=== PATIENT | female | born 1980 | race Caucasian/White ===

== ENCOUNTER 2017-02-08 14:11 | Day surgery (SDC) | payer BC ==
[~2017-02-08 14:11] MED LIST: Lidocaine 1%/Sod Bicarbonate in NS 8.4% 1 ML Syringe IV PRN; Sodium Chloride 0.9% 10 ML Syringe FLUSH PRN
[2017-02-08] MEDS ORDERED: Lactated Ringers 1,000 ML IV SCH (14:15)
--- NOTE | 2017-02-08 14:17 | PCM.PREANE ---
Preanesthetic Assessment - Anesthesia/Transfusion/Family Hx Anesthesia History: Prior Anesthesia Without Reaction Family History of Anesthesia Reaction: No Transfusion History: No Prior Transfusion(s) - Review of Systems General: No Symptoms Pulmonary: No Symptoms Cardiovascular: No Symptoms Gastrointestinal: No symptoms Neurological: No Symptoms Other: Reports: None - Physical Assessment NPO Status Date: 02/08/17 NPO Status Time: 09:00 Pulse: 90 O2 Sat by Pulse Oximetry: 100 Respiratory Rate: 16 Blood Pressure: 112/72 Temperature: 37.1 C Weight: 62.596 kg ASA Class: 1E Mental Status: Alert & Oriented x3 Airway Class: Mallampati = 2 Dentition: Reports: Normal Dentition Thyro-Mental Finger Breadths: 3 Mouth Opening Finger Breadths: 3 ROM/Head Extension: Full Lungs: Clear to auscultation, Normal respiratory effort Cardiovascular: Regular Rate, Regular Rhythm - Allergies Allergies/Adverse Reactions: Allergies Allergy/AdvReac Type Severity Reaction Status Date / Time Penicillins Allergy Rash Verified 03/04/14 08:17 - Blood Blood Available: No Product(s) Available: None - Anesthesia Plan Pre-Op Medication Ordered: None - Acknowledgements Anesthesia Type Planned: MAC Pt an Appropriate Candidate for the Planned Anesthesia: Yes Alternatives and Risks of Anesthesia Discussed w Pt/Guardian: Yes Pt/Guardian Understands and Agrees with Anesthesia Plan: Yes PreAnesthesia Questionnaire - HOME MEDS Home Medications: Home Meds Ferrous Sulfate [Iron Supplement] 325 mg PO DAILY 03/04/14 [History] Ondansetron [Zofran] 4 mg PO DAILY 03/04/14 [History] Vits #93/Iron Fum/FA [ Formula Tablet] 1 each PO DAILY [History] Acetaminophen/HYDROcodone [[place] 325-5 MG] 2 tab PO Q4H PRN #20 tablet 03/05/14 [Rx] Ibuprofen [Motrin] 600 mg PO Q4H PRN #30 tablet 03/05/14 [Rx] - CURRENT (IN HOUSE) MEDS Current Meds: Current Medications Lactated Ringer's (Ringers, Lactated) 1,000 mls @ 125 mls/hr IV ASDIRECTED LOPEZ Stop: 02/08/17 23:00 Lidocaine/Sodium Bicarbonate (Buffered Lidocaine 1% In Ns 8.4%) 0.25 ml IV ONETIME PRN PRN Reason: Prior to IV Start Sodium Chloride (Saline Flush) 10 ml FLUSH ASDIRECTED PRN PRN Reason: Keep Vein Open
[2017-02-08] MEDS ORDERED: Midazolam 1 MG/ML 2 ML SDV ONE (14:35)
[2017-02-08] MEDS ORDERED: Propofol 200 MG/20 ML SDV ONE (14:35)
[2017-02-08] MEDS ORDERED: fentaNYL 100 MCG/2 ML SDV ONE (14:35)
[2017-02-08] MEDS ORDERED: Lidocaine 1% 4 ML ONE (14:37)
[2017-02-08] MEDS ORDERED: Ondansetron 4 MG/2 ML SDV ONE (14:39)
[2017-02-08] MEDS ORDERED: Lactated Ringers 1,000 ML ONE (14:41)
[2017-02-08] MEDS ORDERED: Ketorolac 30 MG/ML SDV ONE (15:01)
--- NOTE | 2017-02-08 15:12 | PCM48HPAN ---
Post Anesthesia Note - EVALUATION WITHIN 48HRS OF ANESTHETIC Vital Signs in Normal Range: Yes Patient Participated in Evaluation: Yes Respiratory Function Stable: Yes Airway Patent: Yes Cardiovascular Function Stable: Yes Hydration Status Stable: Yes Pain Control Satisfactory: Yes Nausea and Vomiting Control Satisfactory: Yes Mental Status Recovered: Yes
[2017-02-08] MEDS ORDERED: Ondansetron 4 MG/2 ML SDV IVPUSH PRN (15:13)
[2017-02-08] MEDS ORDERED: Acetaminophen/Codeine 300-30 MG Tab PO PRN (15:13)
--- NOTE | 2017-02-08 15:19 | PCM.OPNOTE ---
- General Post-Op/Procedure Note Date of Surgery/Procedure: 02/08/17 Operative Procedure(s): Dilation and suction curettage Findings: Uterus is noted to sound to approximately 11 cm. Cervix is dilated 2+ centimeters. There was tissue protruding from the cervical os. Products removed from the individual cavity were consistent with trophoblastic tissue/placental tissue/products of conception. The bilateral adnexal areas were without masses. Pre Op Diagnosis: Incomplete spontaneous Post-Op Diagnosis: Same Anesthesia Technique: MAC Primary Surgeon: Taqueria Ramirez Anesthesia Provider: Jin Acosta Fluid Replacement, Intraop: 1,000 (Crystalloid) EBL in mLs: 25 Complications: None Condition: Good Free Text/Narrative:: Procedure note: Surgery duration: 4 minutes Complications: None Specimens: Endometrial curettings consistent with products of conception Procedure: The patient is taken to the operating room placed in supine position on the operating table. She had sequential compression stockings in place and had Ancef 2 g given for infection prophylaxis. She had no reaction to Ancef even though she had reported an allergic rash reaction to amoxicillin. Very light monitored anesthetic is then given. Patient is placed in a dorsal lithotomy position and prepped and draped in usual fashion. A weighted speculum was placed in the vagina and cervix is visualized. She has please grade 1-2's descensus. Cervix found be dilated at least 2 cm with tissue protruding to the external os. Tissue is consistent with products of conception. The uterus is about 9 weeks' size. No adnexal abnormalities are noted. A 16 mm suction curet was introduced and circumferential pattern the endometrial cavity was evacuated. A large sharp curette was then introduced and a gentle fashion curettage was undertaken and products of [place] essentially completely removed. At this point polyp forceps introduced and then the suction curet was reintroduced. No further tissue was removed. Bleeding was minimal. The vaginal vault was cleared of a small amount of blood present in it. Patient was returned to supine position and awakened from general endotracheal anesthesia. She left the operating room in good condition.
[2017-02-08 15:53] VITALS: BP 108/63
== END 2017-02-08 16:05 | disposition home or self-care (01) ==
LOC: JD.SDS 14:11
PROVIDERS: ATTEND Obstetrics & Gynecology
DX: O03.4 Incomplete spontaneous abortion without complication (principal); D64.9 Anemia, unspecified; Z88.0 Allergy status to penicillin; Z88.1 Allergy status to other antibiotic agents; Z79.899 Other long term (current) drug therapy; Z98.890 Other specified postprocedural states; Z72.0 Tobacco use
CPT/HCPCS: 36415; 59812; 85025; 86850; 86900; 86901; 88305; J1885; J2250; J2405; J3010; J7120; 01965; J2704

== ENCOUNTER 2021-07-25 04:12 | Day surgery (SDC) | payer MEDICAID ==
--- NOTE | 2021-07-25 04:37 | EDM.PDOC ---
<Tan Smith L - Last Filed: 07/25/21 07:16> ED HPI GENERAL MEDICAL PROBLEM - General Chief Complaint: Gastrointestinal Problem Stated Complaint: RT SIDE PAIN Time Seen by Provider: 07/25/21 04:36 Source of Information: Reports: Patient, RN Notes Reviewed - History of Present Illness INITIAL COMMENTS - FREE TEXT/NARRATIVE: 40 yr old female with onset of upper abd pain and cramping about 5 hrs ago. Had eaten out about 4 hrs prior to that. Has been vomiting, no diarrhea. No other family members recently ill. no prior abd surgeries. 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 2000 uncomplicated vaginal baby boy. 2. 2002 uncomplicated vaginal baby girl. 3. 2005 uncomplicated vaginal baby boy. 4. 2007 ectopic . 5. 2008 uncomplicated vaginal baby boy. 6. 2011 uncomplicated vaginal baby boy. 7. 2013 uncomplicated vaginal baby girl. 8. 2016 miscarriage and D&C. 9. 2020 girl Endocrine/Metabolic History: Reports: Diabetes, Gestational Hematologic History: Reports: Anemia - Infectious Disease History Infectious Disease History: Reports: Novel Coronavirus - Past Surgical History HEENT Surgical History: Reports: Oral Surgery Female Surgical History: Reports: D&C Social & Family History - Family History Family Medical History: No Pertinent Family History - Tobacco Use Tobacco Use Status *Q: Never Tobacco User Second Hand Smoke Exposure: No - Caffeine Use Caffeine Use: Reports: Coffee - Recreational Drug Use Recreational Drug Use: No - Living Situation & Occupation Living situation: Reports: (Husbands name is Alison) 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) ED ROS GENERAL - Review of Systems Review Of Systems: See Below HEENT: Reports: No Symptoms Respiratory: Reports: No Symptoms Cardiovascular: Reports: No Symptoms GI/Abdominal: Reports: Abdominal Pain, Nausea, Vomiting : Reports: No Symptoms Musculoskeletal: Denies: Back Pain Skin: Reports: No Symptoms Neurological: Reports: No Symptoms ED EXAM, GI/ABD - Physical Exam Exam: See Below General Appearance: Alert, Mild Distress Head: Atraumatic Neck: Supple Respiratory/Chest: No Respiratory Distress, Lungs Clear, Normal Breath Sounds Cardiovascular: Regular Rate, Rhythm GI/Abdominal Exam: Other (Tender upper mid abd, RUQ, R flank). No: Guarding, Rebound Back Exam: CVA Tenderness (R) Neurological: Alert, Oriented, No Motor/Sensory Deficits Skin Exam: Warm, Dry, Normal Color Course - Re-Assessments/Exams Free Text/Narrative Re-Assessment/Exam: 07/25/21 06:45. WBC 11,400, 76 segs, 13.5 L. CRP 0.2. Feels better after zofran, fluid IV. Still having mild discomfort RUQ and R flank, now has mild tenderness RUQ, no guarding or rebound, RLQ and remainder of abd is nontender at this time. Have given patient option of going home on clear liquids, repeat zofran as needed or getting an US of Abd at this time. [place] out [place], prefers to get US of abd at this time. Ua neg, covid also neg. 07/25/21 07:16 change of shift, will transfer care to Dr Ruiz, awaiting US and US results. Departure - Departure Disposition: DC/Tfer to [facility] Clinical Impression: Appendicitis Qualifiers: Appendicitis type: acute appendicitis Acute appendicitis type: unspecified acute appendicitis type Qualified Code(s): K35.80 - Unspecified acute appendicitis - Discharge Information Referrals: Kenna Cartagena, CABIN SERVICE AGENT [Primary Care Provider] - Forms: ED Department Discharge <Lj Ruiz - Last Filed: 07/25/21 12:53> Course - Vital Signs Last Recorded V/S: Last Vital Signs Temp 98.3 F 07/25/21 04:24 Pulse 96 07/25/21 04:24 Resp 18 07/25/21 04:24 BP 160/105 H 07/25/21 04:24 Pulse Ox 100 07/25/21 04:24 - Orders/Labs/Meds Orders: Active Orders 24 hr Category Date Time Status Communication Order [RC] ASDIRECTED Care 07/25/21 04:44 Active Peripheral IV Care [RC] . DIRECTED Care 07/25/21 04:44 Active Abdomen Ltd [US] Stat Exams 07/25/21 06:56 Taken Abdomen Pelvis w Cont [CT] Stat Exams 07/25/21 09:48 Taken Ketorolac [Toradol] Med 07/25/21 05:00 Active 30 mg IVPUSH ONETIME Lactated Ringers [Ringers, Lactated] 1,000 ml Med 07/25/21 10:00 Active IV ASDIRECTED Sodium Chloride 0.9% [Saline Flush] Med 07/25/21 04:44 Active 10 ml FLUSH ASDIRECTED PRN Sodium Chloride 0.9% [Saline Flush] Med 07/25/21 10:58 Active 10 ml FLUSH ONETIME PRN cefTRIAXone [Rocephin] 2 gm Med 07/25/21 12:49 Ordered Sodium Chloride 0.9% [Normal Saline AdvBag] 100 ml IV ONETIME metroNIDAZOLE/Normal Saline [Flagyl in NS 500 MG/100 ML Med 07/25/21 12:49 Ordered ] 500 mg Premix Bag 1 bag IV ONETIME Peripheral IV Insertion Adult [OM.PC] Stat Oth 07/25/21 04:44 Ordered Medication Orders Lactated Ringer's (Ringers, Lactated) 1,000 mls @ 100 mls/hr IV ASDIRECTED LOPEZ Last Admin: 07/25/21 10:43 Dose: 100 mls/hr Documented by: MALCOM Ketorolac Tromethamine (Ketorolac 30 Mg/Ml Sdv) 30 mg IVPUSH ONETIME LOPEZ Last Admin: 07/25/21 05:02 Dose: 30 mg Documented by: MITZY Sodium Chloride (Sodium Chloride 0.9% 10 Ml Syringe) 10 ml FLUSH ASDIRECTED PRN PRN Reason: Keep Vein Open Last Admin: 07/25/21 11:20 Dose: 10 ml Documented by: Admin: 07/25/21 05:02 Dose: 10 ml Documented by: MITZY Sodium Chloride (Sodium Chloride 0.9% 10 Ml Syringe) 10 ml FLUSH ONETIME PRN PRN Reason: Keep Vein Open Last Admin: 07/25/21 12:39 Dose: 10 ml Documented by: MALCOM Labs: Laboratory Tests 07/25/21 07/25/21 07/25/21 Range/Units 04:48 04:48 04:48 WBC 11.39 H (3.98-10.04) K/mm3 RBC 4.78 (3.98-5.22) M/mm3 Hgb 14.1 (11.2-15.7) gm/dl Hct 42.4 (34.1-44.9) % MCV 88.7 (79.4-94.8) fl MCH 29.5 (25.6-32.2) pg MCHC 33.3 (32.2-35.5) g/dl RDW Std Deviation 38.8 (36.4-46.3) fL Plt Count 243 (182-369) K/mm3 MPV 9.4 (9.4-12.3) fl Neut % (Auto) 76.1 H (34.0-71.1) % Lymph % (Auto) 13.5 L (19.3-51.7) % [place] % (Auto) 8.8 (4.7-12.5) % Eos % (Auto) 1.2 (0.7-5.8) Baso % (Auto) 0.2 (0.1-1.2) % Neut # (Auto) 8.67 H (1.56-6.13) K/mm3 Lymph # (Auto) 1.54 (1.18-3.74) K/mm3 [place] # (Auto) 1.00 H (0.24-0.36) K/mm3 Eos # (Auto) 0.14 (0.04-0.36) K/mm3 Baso # (Auto) 0.02 (0.01-0.08) K/mm3 Sodium 142 (136-145) mEq/L Potassium 3.6 (3.5-5.1) mEq/L Chloride 104 (98-107) mEq/L Carbon Dioxide 26 (21-32) mEq/L Anion Gap 15.6 H (5-15) BUN 13 (7-18) mg/dL Creatinine 0.8 (0.55-1.02) mg/dL Est Cr Clr Drug Dosing 84.11 mL/min Estimated GFR (MDRD) > 60 (>60) mL/min BUN/Creatinine Ratio 16.3 (14-18) Glucose 114 H (70-99) mg/dL Calcium 9.9 (8.5-10.1) mg/dL Total Bilirubin 0.4 (0.2-1.0) mg/dL AST 36 (15-37) U/L ALT 132 H (14-59) U/L Alkaline Phosphatase 69 (46-116) U/L C-Reactive Protein <0.2 (<1.0) mg/dL Total Protein 8.0 (6.4-8.2) g/dl Albumin 4.5 (3.4-5.0) g/dl Globulin 3.5 gm/dL Albumin/Globulin Ratio 1.3 (1-2) Urine Color (Yellow) Urine Appearance (Clear) Urine pH (5.0-8.0) Ur Specific [place] (1.005-1.030) Urine Protein (Negative) Urine Glucose (UA) (Negative) Urine Ketones (Negative) Urine Occult Blood (Negative) Urine Nitrite (Negative) Urine Bilirubin (Negative) Urine Urobilinogen (0.2-1.0) Ur Leukocyte Esterase (Negative) Urine RBC (0-5) /hpf Urine WBC (0-5) /hpf Ur Squamous Epith Cells (0-5) /hpf Urine Bacteria (FEW) /hpf Urine Mucus (FEW) /hpf Urine Yeast (NOT SEEN) Influenza Type A RNA Negative (NEGATIVE) Influenza Type B RNA Negative (NEGATIVE) SARS-CoV-2 RNA (FLORES) Negative (NEGATIVE) 07/25/21 Range/Units 04:57 WBC (3.98-10.04) K/mm3 RBC (3.98-5.22) M/mm3 Hgb (11.2-15.7) gm/dl Hct (34.1-44.9) % MCV (79.4-94.8) fl MCH (25.6-32.2) pg MCHC (32.2-35.5) g/dl RDW Std Deviation (36.4-46.3) fL Plt Count (182-369) K/mm3 MPV (9.4-12.3) fl Neut % (Auto) (34.0-71.1) % Lymph % (Auto) (19.3-51.7) % [place] % (Auto) (4.7-12.5) % Eos % (Auto) (0.7-5.8) Baso % (Auto) (0.1-1.2) % Neut # (Auto) (1.56-6.13) K/mm3 Lymph # (Auto) (1.18-3.74) K/mm3 [place] # (Auto) (0.24-0.36) K/mm3 Eos # (Auto) (0.04-0.36) K/mm3 Baso # (Auto) (0.01-0.08) K/mm3 Sodium (136-145) mEq/L Potassium (3.5-5.1) mEq/L Chloride (98-107) mEq/L Carbon Dioxide (21-32) mEq/L Anion Gap (5-15) BUN (7-18) mg/dL Creatinine (0.55-1.02) mg/dL Est Cr Clr Drug Dosing mL/min Estimated GFR (MDRD) (>60) mL/min BUN/Creatinine Ratio (14-18) Glucose (70-99) mg/dL Calcium (8.5-10.1) mg/dL Total Bilirubin (0.2-1.0) mg/dL AST (15-37) U/L ALT (14-59) U/L Alkaline Phosphatase (46-116) U/L C-Reactive Protein (<1.0) mg/dL Total Protein (6.4-8.2) g/dl Albumin (3.4-5.0) g/dl Globulin gm/dL Albumin/Globulin Ratio (1-2) Urine Color Yellow (Yellow) Urine Appearance Slt cloudy H (Clear) Urine pH 5.5 (5.0-8.0) Ur Specific [place] > or = 1.030 (1.005-1.030) Urine Protein Negative (Negative) Urine Glucose (UA) Negative (Negative) Urine Ketones Negative (Negative) Urine Occult Blood Trace-intact H (Negative) Urine Nitrite Negative (Negative) Urine Bilirubin Negative (Negative) Urine Urobilinogen 0.2 (0.2-1.0) Ur Leukocyte Esterase Negative (Negative) Urine RBC 0-5 (0-5) /hpf Urine WBC 0-5 (0-5) /hpf Ur Squamous Epith Cells 0-5 (0-5) /hpf Urine Bacteria Few (FEW) /hpf Urine Mucus Many H (FEW) /hpf Urine Yeast Rare H (NOT SEEN) Influenza Type A RNA (NEGATIVE) Influenza Type B RNA (NEGATIVE) SARS-CoV-2 RNA (FLORES) (NEGATIVE) Meds: Medications Generic Name Dose Route Start Last Admin Trade Name Freq PRN Reason Stop Dose Admin Lactated Ringer's 1,000 mls @ 100 mls/hr 07/25/21 10:00 07/25/21 10:43 Ringers, Lactated IV 100 mls/hr ASDIRECTED LOPEZ Administration Ketorolac Tromethamine 30 mg 07/25/21 05:00 07/25/21 05:02 Ketorolac 30 Mg/Ml Sdv IVPUSH 30 mg ONETIME LOPEZ Administration Sodium Chloride 10 ml 07/25/21 04:44 07/25/21 11:20 Sodium Chloride 0.9% 10 Ml Syringe FLUSH 10 ml ASDIRECTED PRN Administration Keep Vein Open Sodium Chloride 10 ml 07/25/21 10:58 07/25/21 12:39 Sodium Chloride 0.9% 10 Ml Syringe FLUSH 10 ml ONETIME PRN Administration Keep Vein Open Discontinued Medications Generic Name Dose Route Start Last Admin Trade Name Freq PRN Reason Stop Dose Admin Diatrizoate Meglum/Diatrizoate Sod 40 ml 07/25/21 10:58 07/25/21 11:20 Diatrizoate Meglumine/Diatrizoate Sodium 37% 120 Ml Bottle PO 07/25/21 10:59 60 ml ONETIME ONE Administration Hydromorphone HCl 0.5 mg 07/25/21 11:12 07/25/21 11:30 Hydromorphone 0.5 Mg/0.5 Ml Syringe IVPUSH 07/25/21 11:13 0.5 mg ONETIME ONE Administration Sodium Chloride 1,000 mls @ 999 mls/hr 07/25/21 04:45 07/25/21 05:02 Normal Saline IV 07/25/21 05:44 999 mls/hr Q1H LOPEZ Administration Iopamidol 100 ml 07/25/21 10:58 07/25/21 11:20 Iopamidol 612 Mg/Ml 100 Ml Bottle IVPUSH 07/25/21 10:59 100 ml ONETIME ONE Administration Ondansetron HCl 4 mg 07/25/21 04:44 07/25/21 05:02 Ondansetron 4 Mg/2 Ml Sdv IVPUSH 07/25/21 04:45 4 mg ONETIME ONE Administration Ondansetron HCl 4 mg 07/25/21 10:33 07/25/21 10:43 Ondansetron 4 Mg/2 Ml Sdv IVPUSH 07/25/21 10:34 4 mg ONETIME ONE Administration - Re-Assessments/Exams Free Text/Narrative Re-Assessment/Exam: 07/25/21 11:10 Her US shows mild dilatation of the common bile duct at 7.6mm. Correlate as to possible biliary obstruction and consider dedicated evaluation, such as MRI/MRCP. Large, fatty liver. Nonmobile echogenic foci in the gallbladder measuring up to 5mm, could represent polyps or sludge balls. Appendix not id entified, with appendicitis therefore neither confirmed nor excluded. She has pain now more in the RLQ. I have ordered a CT of her abdomen and pelvis with IV and oral contrast. She has nausea and more pain so I ordered dilaudid 0.5mg IV and zofran 4mg IV. 07/25/21 12:[address] shows acute appendicitis. Currently there is no evidence for free perforation or abscess. I called Dr Phelps and she will come see the patient and take her to the OR to remove the appendix. I have ordered rocephin 2 grams IV and flagyl 500mg IV. Departure - Departure Time of Disposition: 12:55 Condition: Fair Sepsis Event Note (ED) - Focused Exam Vital Signs: Vital Signs Temp Pulse Resp BP Pulse Ox 07/25/21 04:24 98.3 F 96 18 160/105 H 100 - My Orders Last 24 Hours: My Active Orders 07/25/21 09:48 Abdomen Pelvis w Cont [CT] Stat 07/25/21 10:00 Lactated Ringers [Ringers, Lactated] 1,000 ml IV ASDIRECTED 07/25/21 12:49 cefTRIAXone [Rocephin] 2 gm Sodium Chloride 0.9% [Normal Saline AdvBag] 100 ml IV ONETIME metroNIDAZOLE/Normal Saline [Flagyl in NS 500 MG/100 ML] 500 mg Premix Bag 1 bag IV ONETIME - Assessment/Plan Last 24 Hours: My Active Orders 07/25/21 09:48 Abdomen Pelvis w Cont [CT] Stat 07/25/21 10:00 Lactated Ringers [Ringers, Lactated] 1,000 ml IV ASDIRECTED 07/25/21 12:49 cefTRIAXone [Rocephin] 2 gm Sodium Chloride 0.9% [Normal Saline AdvBag] 100 ml IV ONETIME metroNIDAZOLE/Normal Saline [Flagyl in NS 500 MG/100 ML] 500 mg Premix Bag 1 bag IV ONETIME
[2021-07-25] MEDS ORDERED: Ondansetron 4 MG/2 ML SDV IVPUSH ONE ×3 (04:44→16:35)
[2021-07-25] MEDS ORDERED: Sodium Chloride 0.9% 1,000 ML IV SCH (04:45)
[2021-07-25] MEDS ORDERED: Ketorolac 30 MG/ML SDV IVPUSH SCH (05:00)
[2021-07-25] MEDS: Sodium Chloride 0.9% 10 ML Syringe FLUSH PRN ×2 (05:02→11:20)
[2021-07-25 05:49] LABS: CORONAVIRUS COVID-19 NAA NEGATIVE (NEGATIVE)
[2021-07-25] MEDS ORDERED: Lactated Ringers 1,000 ML IV SCH (10:00)
[2021-07-25] MEDS ORDERED: Iopamidol 612 MG/ML 100 ML Bottle IVPUSH ONE (10:58)
[2021-07-25] MEDS ORDERED: Sodium Chloride 0.9% 10 ML Syringe FLUSH PRN (10:58)
[2021-07-25] MEDS ORDERED: Diatrizoate Meglumine/Diatrizoate Sodium 37% 120 ML Bottle PO ONE (10:58)
[2021-07-25] MEDS ORDERED: HYDROmorphone 0.5 MG/0.5 ML Syringe IVPUSH ONE (11:12)
[2021-07-25] MEDS ORDERED: cefTRIAXone 2 GM in Sodium Chloride 0.9% 100 ML IV ONE (12:49)
[2021-07-25] MEDS ORDERED: metroNIDAZOLE/Normal Saline 500 MG in Premix Bag 1 BAG IV ONE (12:49)
[2021-07-25] MEDS ORDERED: Lidocaine 1% with EPINEPHrine 1:100,000 10 ML MDV ONE (13:27)
[2021-07-25] MEDS ORDERED: Bupivacaine 0.5% 30 ML SDV ONE (13:27)
--- NOTE | 2021-07-25 13:41 | PCM.PREANE ---
Preanesthetic Assessment - Procedure Proposed Procedure: Laparoscopic appendectomy - Anesthesia/Transfusion/Family Hx Anesthesia History: Prior Anesthesia Without Reaction Transfusion History: No Prior Transfusion(s) Intubation History: Unknown - Review of Systems General: No Symptoms Pulmonary: No Symptoms Cardiovascular: No Symptoms Gastrointestinal: No Symptoms Neurological: No Symptoms Other: Reports: None - Physical Assessment NPO Status Date: 07/25/21 NPO Status Time: 12:00 Vital Signs: Last Vital Signs Temp 98.3 F 07/25/21 04:24 Pulse 96 07/25/21 04:24 Resp 18 07/25/21 04:24 BP 160/105 H 07/25/21 04:24 Pulse Ox 100 07/25/21 04:24 Height: 1.65 m Weight: 70.307 kg ASA Class: 1E Mental Status: Alert & Oriented x3 Airway Class: Mallampati = 2 Dentition: Reports: Normal Dentition, [place](s) Thyro-Mental Finger Breadths: 3 Mouth Opening Finger Breadths: 3 ROM/Head Extension: Full Lungs: Clear to Auscultation, Normal Respiratory Effort Cardiovascular: Regular Rate, Regular Rhythm - Lab Values: Laboratory Last Values WBC 11.39 K/mm3 (3.98-10.04) H 07/25/21 04:48 RBC 4.78 M/mm3 (3.98-5.22) 07/25/21 04:48 Hgb 14.1 gm/dl (11.2-15.7) 07/25/21 04:48 Hct 42.4 % (34.1-44.9) 07/25/21 04:48 MCV 88.7 fl (79.4-94.8) 07/25/21 04:48 MCH 29.5 pg (25.6-32.2) 07/25/21 04:48 MCHC 33.3 g/dl (32.2-35.5) 07/25/21 04:48 RDW Std Deviation 38.8 fL (36.4-46.3) 07/25/21 04:48 Plt Count 243 K/mm3 (182-369) 07/25/21 04:48 MPV 9.4 fl (9.4-12.3) 07/25/21 04:48 Neut % (Auto) 76.1 % (34.0-71.1) H 07/25/21 04:48 Lymph % (Auto) 13.5 % (19.3-51.7) L 07/25/21 04:48 [place] % (Auto) 8.8 % (4.7-12.5) 07/25/21 04:48 Eos % (Auto) 1.2 (0.7-5.8) 07/25/21 04:48 Baso % (Auto) 0.2 % (0.1-1.2) 07/25/21 04:48 Neut # (Auto) 8.67 K/mm3 (1.56-6.13) H 07/25/21 04:48 Lymph # (Auto) 1.54 K/mm3 (1.18-3.74) 07/25/21 04:48 [place] # (Auto) 1.00 K/mm3 (0.24-0.36) H 07/25/21 04:48 Eos # (Auto) 0.14 K/mm3 (0.04-0.36) 07/25/21 04:48 Baso # (Auto) 0.02 K/mm3 (0.01-0.08) 07/25/21 04:48 Sodium 142 mEq/L (136-145) 07/25/21 04:48 Potassium 3.6 mEq/L (3.5-5.1) 07/25/21 04:48 Chloride 104 mEq/L (98-107) 07/25/21 04:48 Carbon Dioxide 26 mEq/L (21-32) 07/25/21 04:48 Anion Gap 15.6 (5-15) H 07/25/21 04:48 BUN 13 mg/dL (7-18) 07/25/21 04:48 Creatinine 0.8 mg/dL (0.55-1.02) 07/25/21 04:48 Est Cr Clr Drug Dosing 84.11 mL/min 07/25/21 04:48 Estimated GFR (MDRD) > 60 mL/min (>60) 07/25/21 04:48 BUN/Creatinine Ratio 16.3 (14-18) 07/25/21 04:48 Glucose 114 mg/dL (70-99) H 07/25/21 04:48 Calcium 9.9 mg/dL (8.5-10.1) 07/25/21 04:48 Total Bilirubin 0.4 mg/dL (0.2-1.0) 07/25/21 04:48 AST 36 U/L (15-37) 07/25/21 04:48 ALT 132 U/L (14-59) H 07/25/21 04:48 Alkaline Phosphatase 69 U/L (46-116) 07/25/21 04:48 C-Reactive Protein <0.2 mg/dL (<1.0) 07/25/21 04:48 Total Protein 8.0 g/dl (6.4-8.2) 07/25/21 04:48 Albumin 4.5 g/dl (3.4-5.0) 07/25/21 04:48 Globulin 3.5 gm/dL 07/25/21 04:48 Albumin/Globulin Ratio 1.3 (1-2) 07/25/21 04:48 Urine Color Yellow (Yellow) 07/25/21 04:57 Urine Appearance Slt cloudy (Clear) H 07/25/21 04:57 Urine pH 5.5 (5.0-8.0) 07/25/21 04:57 Ur Specific [place] > or = 1.030 (1.005-1.030) 07/25/21 04:57 Urine Protein Negative (Negative) 07/25/21 04:57 Urine Glucose (UA) Negative (Negative) 07/25/21 04:57 Urine Ketones Negative (Negative) 07/25/21 04:57 Urine Occult Blood Trace-intact (Negative) H 07/25/21 04:57 Urine Nitrite Negative (Negative) 07/25/21 04:57 Urine Bilirubin Negative (Negative) 07/25/21 04:57 Urine Urobilinogen 0.2 (0.2-1.0) 07/25/21 04:57 Ur Leukocyte Esterase Negative (Negative) 07/25/21 04:57 Urine RBC 0-5 /hpf (0-5) 07/25/21 04:57 Urine WBC 0-5 /hpf (0-5) 07/25/21 04:57 Ur Squamous Epith Cells 0-5 /hpf (0-5) 07/25/21 04:57 Urine Bacteria Few /hpf (FEW) 07/25/21 04:57 Urine Mucus Many /hpf (FEW) H 07/25/21 04:57 Urine Yeast Rare (NOT SEEN) H 07/25/21 04:57 Influenza Type A RNA Negative (NEGATIVE) 07/25/21 04:48 Influenza Type B RNA Negative (NEGATIVE) 07/25/21 04:48 SARS-CoV-2 RNA (FLORES) Negative (NEGATIVE) 07/25/21 04:48 - Allergies Allergies/Adverse Reactions: Allergies Allergy/AdvReac Type Severity Reaction Status Date / Time amoxicillin Allergy Rash Verified 07/25/21 04:26 - Acknowledgements Anesthesia Type Planned: General Anesthesia Pt an Appropriate Candidate for the Planned Anesthesia: Yes Alternatives and Risks of Anesthesia Discussed w Pt/Guardian: Yes Pt/Guardian Understands and Agrees with Anesthesia Plan: Yes PreAnesthesia Questionnaire Gastrointestinal History: Reports: GERD 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 2000 uncomplicated vaginal baby boy. 2. 2002 uncomplicated vaginal baby girl. 3. 2005 uncomplicated vaginal baby boy. 4. 2007 ectopic . 5. 2008 uncomplicated vaginal baby boy. 6. 2011 uncomplicated vaginal baby boy. 7. 2013 uncomplicated vaginal baby girl. 8. 2016 miscarriage and D&C. 9. 2020 girl Endocrine/Metabolic History: Reports: Diabetes, Gestational Hematologic History: Reports: Anemia - Infectious Disease History Infectious Disease History: Reports: Novel Coronavirus - Past Surgical History HEENT Surgical History: Reports: Oral Surgery Female Surgical History: Reports: D&C - SUBSTANCE USE Tobacco Use Status *Q: Never Tobacco User Second Hand Smoke Exposure: No Recreational Drug Use History: No - HOME MEDS Home Medications: Home Meds No122/Iron/Folic Acid [ Multi Tablet] 1 each PO DAILY 02/21/19 [History] Ascorbic Acid [Vitamin C] 1,000 mg PO DAILY 01/14/21 [History] - CURRENT (IN HOUSE) MEDS Current Meds: Current Medications Lactated Ringer's (Ringers, Lactated) 1,000 mls @ 100 mls/hr IV ASDIRECTED [facility] Last Admin: 07/25/21 10:43 Dose: 100 mls/hr Documented by: Metronidazole 500 mg/ Premix 100 mls @ 100 mls/hr IV ONETIME ONE Stop: 07/25/21 13:48 Last Admin: 07/25/21 13:15 Dose: 100 mls/hr Documented by: Ketorolac Tromethamine (Ketorolac 30 Mg/Ml Sdv) 30 mg IVPUSH ONETIME [facility]OPE[place] Last Admin: 07/25/21 05:02 Dose: 30 mg Documented by: Sodium Chloride (Sodium Chloride 0.9% 10 Ml Syringe) 10 ml FLUSH ASDIRECTED PRN PRN Reason: Keep Vein Open Last Admin: 07/25/21 11:20 Dose: 10 ml Documented by: Sodium Chloride (Sodium Chloride 0.9% 10 Ml Syringe) 10 ml FLUSH ONETIME PRN PRN Reason: Keep Vein Open Last Admin: 07/25/21 12:39 Dose: 10 ml Documented by: Discontinued Medications Bupivacaine HCl (Bupivacaine 0.5% 30 Ml Sdv) Confirm Administered Dose 30 ml .ROUTE .STK-MED ONE Stop: 07/25/21 13:28 Diatrizoate Meglum/Diatrizoate Sod (Diatrizoate Meglumine/Diatrizoate Sodium 37% 120 Ml Bottle) 40 ml PO ONETIME ONE Stop: 07/25/21 10:59 Last Admin: 07/25/21 11:20 Dose: 60 ml Documented by: Hydromorphone HCl (Hydromorphone 0.5 Mg/0.5 Ml Syringe) 0.5 mg IVPUSH ONETIME ONE Stop: 07/25/21 11:13 Last Admin: 07/25/21 11:30 Dose: 0.5 mg Documented by: Sodium Chloride (Normal Saline) 1,000 mls @ 999 mls/hr IV Q1H [facility] Stop: 07/25/21 05:44 Last Admin: 07/25/21 05:02 Dose: 999 mls/hr Documented by: Ceftriaxone Sodium 2 gm/ (Sodium Chloride) 100 mls @ 200 mls/hr IV ONETIME ONE Stop: 07/25/21 13:18 Last Admin: 07/25/21 13:15 Dose: 200 mls/hr Documented by: Iopamidol (Iopamidol 612 Mg/Ml 100 Ml Bottle) 100 ml IVPUSH ONETIME ONE Stop: 07/25/21 10:59 Last Admin: 07/25/21 11:20 Dose: 100 ml Documented by: Lidocaine/Epinephrine (Lidocaine 1% With Epinephrine 1:100,000 10 Ml Mdv) Confirm Administered Dose 30 ml .ROUTE .STK-MED ONE Stop: 07/25/21 13:28 Ondansetron HCl (Ondansetron 4 Mg/2 Ml Sdv) 4 mg IVPUSH ONETIME ONE Stop: 07/25/21 04:45 Last Admin: 07/25/21 05:02 Dose: 4 mg Documented by: Ondansetron HCl (Ondansetron 4 Mg/2 Ml Sdv) 4 mg IVPUSH ONETIME ONE Stop: 07/25/21 10:34 Last Admin: 07/25/21 10:43 Dose: 4 mg Documented by:
[2021-07-25] MEDS ORDERED: Lidocaine 1% 4 ML ONE (13:47)
[2021-07-25] MEDS ORDERED: Ketorolac 30 MG/ML SDV ONE (13:47)
[2021-07-25] MEDS ORDERED: fentaNYL 250 MCG/5 ML SDV ONE (13:47)
[2021-07-25] MEDS ORDERED: Succinylcholine/Sod PF 100 MG/5 ML SYRINGE IV ONE (13:47)
[2021-07-25] MEDS ORDERED: Ondansetron 4 MG/2 ML SDV ONE ×2 (13:47→16:37)
[2021-07-25] MEDS ORDERED: Rocuronium 50 MG/5 ML Vial ONE (13:47)
[2021-07-25] MEDS ORDERED: Propofol 200 MG/20 ML SDV ONE (13:47)
[2021-07-25] MEDS ORDERED: Dexamethasone 4 MG/ML 5 ML MDV ONE (13:47)
[2021-07-25] MEDS ORDERED: HYDROmorphone 0.5 MG/0.5 ML Syringe ONE (13:48)
[2021-07-25] MEDS ORDERED: Midazolam 1 MG/ML 2 ML SDV ONE (14:06)
[2021-07-25] MEDS ORDERED: HYDROmorphone 0.5 MG/0.5 ML Syringe IVPUSH PRN (14:46)
[2021-07-25] MEDS ORDERED: fentaNYL 100 MCG/2 ML SDV IVPUSH PRN (14:46)
--- NOTE | 2021-07-25 15:16 | PCM.PRNOTE ---
- Free Text/Narrative Note: Operative Report Date of surgery: July 25, 2021 Preoperative diagnosis: acute appendicitis. Postoperative diagnosis: same Procedure performed: laparoscopic appendectomy Surgeon: Dr. Lashaun Aly Anesthesia: General Pelt Shearer: Robert Chew CRNA Estimated blood loss 5 mL IV fluids: 1200 mL Urine output: 0 Drains and lines: None Findings: Acute appendicitis Pathology: Appendix Indications for procedure: The patient is a 40-year-old female who presented to the emergency department with findings of abdominal pain. She had investigation that indicated acute appendicitis as visualized on CT scan. We discussed a laparoscopic appendectomy for treatment. We discussed risks of bleeding and conversion to open. We also discussed the risk of possible intra-abdominal injury. Her written consent was obtained. Description of procedure: The patient was taken back to the operating room and placed in supine position on the operating table. SCD boots were in place and functional prior to the start of the procedure. Preoperative antibiotics were administered in the Emergency department for acute appendicitis. The patient had successful induction of general anesthesia and was intubated without difficulty. Pt was then prepped and draped in standard surgical fashion and a timeout was performed. We began by making a 15 mm incision in the infraumbilical skin and deepened down to level of the fascia. A small umbilical hernia was present, and the umbilical port site was placed in this area after enlarging the defect to accommodate the Ruano port. We entered the peritoneum and then placed stay sutures of 0 Vicryl on the fascial edges. A 12 mm Ruano port was then placed into the umbilicus and the balloon was inflated. The abdomen was insufflated to 15 mmHg a 5 mm camera was inserted. There was no evidence of any injury created from entry into the abdomen. A TA P block was performed using mixed 1% lidocaine with epinephrine and 0.5% bupivacaine. We then proceeded to place a 5 mm port under direct visualization in the suprapubic midline and an additional 5mm port in the left lower quadrant. The patient was then positioned in Trendelenburg with right side elevated and we proceeded to mobilize the appendix. The appendix firm with dark discoloration at the base consistent with developing gangrene of the appendix. There was a small amount of fluid in the abdomen, which was removed with a RayTec. The appendix was then grasped and with blunt dissection was brought into the surgical field. The mesoappendix was dissected from the appendix with the LigaSure. The appendix was then taken with a tissue staple load. The specimen was in place in the Endo Catch bag. We then inspected and removed any blood in the area. There was no active bleeding at the end of this case. The abdomen was then desufflated and the umbilical fascia closed with 0 Vicryl sutures and the stay sutures were tied, effectively closing the umbilical port site. The skin was then reapproximated at all port sites using a 4-0 Monocryl subcutaneous stitch and covered with Dermabond surgical glue. The patient tolerated the procedure. She was extubated and transported to the PACU in stable condition. All sponge and needle counts were correct. Lashaun Aly MD General surgery
--- NOTE | 2021-07-25 15:16 | PCM.HP.2 ---
H&P History of Present Illness - General Date of Service: 07/25/21 Admit Problem/Dx: Admission Diagnosis/Problem Admission Diagnosis/Problem Abdominal pain acute appendicitis Source of Information: Patient, Provider History Limitations: Reports: No Limitations - History of Present Illness Initial Comments - Free Text/Narative: The patient is a 40-year-old female presented to the emergency department complaining of abdominal pain. She reports the pain started last night. She developed nausea and vomiting after the pain. She states she had a similar episode within the last year, but it resolved after she went to bed. This time the pain persisted. She normally has diarrhea and she noted that she had more normal consistency stools in the past 2 days. She had chills. She denies any fever. She denies any hematochezia or melena. In the ED she had evaluation that included a CT scan of the abdomen and pelvis. 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 2000 uncomplicated vaginal baby boy. 2. 2002 uncomplicated vaginal baby girl. 3. 2005 uncomplicated vaginal baby boy. 4. 2007 ectopic . 5. 2008 uncomplicated vaginal baby boy. 6. 2011 uncomplicated vaginal baby boy. 7. 2013 uncomplicated vaginal baby girl. 8. 2016 miscarriage and D&C. 2020 girl Endocrine/Metabolic History: Reports: Diabetes, Gestational Hematologic History: Reports: Anemia - Infectious Disease History Infectious Disease History: Reports: Novel Coronavirus - Past Surgical History HEENT Surgical History: Reports: Oral Surgery Female Surgical History: Reports: D&C Social & Family History - Family History Cardiac: Reports: Hypertension Oncologic: Reports: Other (See Below) Other Oncologic Family History: stomach cancer in 2 second-degree relatives - Tobacco Use Tobacco Use Status *Q: Never Tobacco User Second Hand Smoke Exposure: No - Caffeine Use Caffeine Use: Reports: Coffee - Recreational Drug Use Recreational Drug Use: No - Living Situation & Occupation Living situation: Reports: (Husbands name is Alison) 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 Denies: Melena Genitourinary: Reports: No Symptoms Musculoskeletal: Reports: No Symptoms Skin: Reports: No Symptoms Neurological: Reports: No Symptoms Hematologic/Lymphatic: Reports: No Symptoms Exam - Exam Exam: See Below - Vital Signs Vital Signs: Last Vital Signs Temp 36.8 C 07/25/21 04:24 Pulse 96 07/25/21 04:24 Resp 18 07/25/21 04:24 BP 160/105 H 07/25/21 04:24 Pulse Ox 100 07/25/21 04:24 Weight: 70.307 kg - Exam Quality Assessment: No: Supplemental Oxygen General: Alert, Oriented HEENT: Conjunctiva Clear, EOMI Neck: Supple Lungs: Clear to Auscultation, Normal Respiratory Effort Cardiovascular: Regular Rate, Regular Rhythm GI/Abdominal Exam: Soft, Rebound (in the RLQ), Tender Extremities: Normal Inspection, No Pedal Edema Peripheral Pulses: 2+: Dorsalis Pedis (L), Dorsalis Pedis (R) Skin: Warm, Dry, Intact Neurological: Cranial Nerves Intact Neuro Extensive - Mental Status: Normal Mood/Affect - Patient Data Lab Results Last 24 hrs: Laboratory Results - last 24 hr 07/25/21 07/25/21 07/25/21 Range/Units 04:48 04:48 04:48 WBC 11.39 H (3.98-10.04) K/mm3 RBC 4.78 (3.98-5.22) M/mm3 Hgb 14.1 (11.2-15.7) gm/dl Hct 42.4 (34.1-44.9) % MCV 88.7 (79.4-94.8) fl MCH 29.5 (25.6-32.2) pg MCHC 33.3 (32.2-35.5) g/dl RDW Std Deviation 38.8 (36.4-46.3) fL Plt Count 243 (182-369) K/mm3 MPV 9.4 (9.4-12.3) fl Neut % (Auto) 76.1 H (34.0-71.1) % Lymph % (Auto) 13.5 L (19.3-51.7) % [place] % (Auto) 8.8 (4.7-12.5) % Eos % (Auto) 1.2 (0.7-5.8) Baso % (Auto) 0.2 (0.1-1.2) % Neut # (Auto) 8.67 H (1.56-6.13) K/mm3 Lymph # (Auto) 1.54 (1.18-3.74) K/mm3 [place] # (Auto) 1.00 H (0.24-0.36) K/mm3 Eos # (Auto) 0.14 (0.04-0.36) K/mm3 Baso # (Auto) 0.02 (0.01-0.08) K/mm3 Sodium 142 (136-145) mEq/L Potassium 3.6 (3.5-5.1) mEq/L Chloride 104 (98-107) mEq/L Carbon Dioxide 26 (21-32) mEq/L Anion Gap 15.6 H (5-15) BUN 13 (7-18) mg/dL Creatinine 0.8 (0.55-1.02) mg/dL Est Cr Clr Drug Dosing 84.11 mL/min Estimated GFR (MDRD) > 60 (>60) mL/min BUN/Creatinine Ratio 16.3 (14-18) Glucose 114 H (70-99) mg/dL Calcium 9.9 (8.5-10.1) mg/dL Total Bilirubin 0.4 (0.2-1.0) mg/dL AST 36 (15-37) U/L ALT 132 H (14-59) U/L Alkaline Phosphatase 69 (46-116) U/L C-Reactive Protein <0.2 (<1.0) mg/dL Total Protein 8.0 (6.4-8.2) g/dl Albumin 4.5 (3.4-5.0) g/dl Globulin 3.5 gm/dL Albumin/Globulin Ratio 1.3 (1-2) Urine Color (Yellow) Urine Appearance (Clear) Urine pH (5.0-8.0) Ur Specific [place] (1.005-1.030) Urine Protein (Negative) Urine Glucose (UA) (Negative) Urine Ketones (Negative) Urine Occult Blood (Negative) Urine Nitrite (Negative) Urine Bilirubin (Negative) Urine Urobilinogen (0.2-1.0) Ur Leukocyte Esterase (Negative) Urine RBC (0-5) /hpf Urine WBC (0-5) /hpf Ur Squamous Epith Cells (0-5) /hpf Urine Bacteria (FEW) /hpf Urine Mucus (FEW) /hpf Urine Yeast (NOT SEEN) Influenza Type A RNA Negative (NEGATIVE) Influenza Type B RNA Negative (NEGATIVE) SARS-CoV-2 RNA (FLORES) Negative (NEGATIVE) 07/25/21 Range/Units 04:57 WBC (3.98-10.04) K/mm3 RBC (3.98-5.22) M/mm3 Hgb (11.2-15.7) gm/dl Hct (34.1-44.9) % MCV (79.4-94.8) fl MCH (25.6-32.2) pg MCHC (32.2-35.5) g/dl RDW Std Deviation (36.4-46.3) fL Plt Count (182-369) K/mm3 MPV (9.4-12.3) fl Neut % (Auto) (34.0-71.1) % Lymph % (Auto) (19.3-51.7) % [place] % (Auto) (4.7-12.5) % Eos % (Auto) (0.7-5.8) Baso % (Auto) (0.1-1.2) % Neut # (Auto) (1.56-6.13) K/mm3 Lymph # (Auto) (1.18-3.74) K/mm3 [place] # (Auto) (0.24-0.36) K/mm3 Eos # (Auto) (0.04-0.36) K/mm3 Baso # (Auto) (0.01-0.08) K/mm3 Sodium (136-145) mEq/L Potassium (3.5-5.1) mEq/L Chloride (98-107) mEq/L Carbon Dioxide (21-32) mEq/L Anion Gap (5-15) BUN (7-18) mg/dL Creatinine (0.55-1.02) mg/dL Est Cr Clr Drug Dosing mL/min Estimated GFR (MDRD) (>60) mL/min BUN/Creatinine Ratio (14-18) Glucose (70-99) mg/dL Calcium (8.5-10.1) mg/dL Total Bilirubin (0.2-1.0) mg/dL AST (15-37) U/L ALT (14-59) U/L Alkaline Phosphatase (46-116) U/L C-Reactive Protein (<1.0) mg/dL Total Protein (6.4-8.2) g/dl Albumin (3.4-5.0) g/dl Globulin gm/dL Albumin/Globulin Ratio (1-2) Urine Color Yellow (Yellow) Urine Appearance Slt cloudy H (Clear) Urine pH 5.5 (5.0-8.0) Ur Specific [place] > or = 1.030 (1.005-1.030) Urine Protein Negative (Negative) Urine Glucose (UA) Negative (Negative) Urine Ketones Negative (Negative) Urine Occult Blood Trace-intact H (Negative) Urine Nitrite Negative (Negative) Urine Bilirubin Negative (Negative) Urine Urobilinogen 0.2 (0.2-1.0) Ur Leukocyte Esterase Negative (Negative) Urine RBC 0-5 (0-5) /hpf Urine WBC 0-5 (0-5) /hpf Ur Squamous Epith Cells 0-5 (0-5) /hpf Urine Bacteria Few (FEW) /hpf Urine Mucus Many H (FEW) /hpf Urine Yeast Rare H (NOT SEEN) Influenza Type A RNA (NEGATIVE) Influenza Type B RNA (NEGATIVE) SARS-CoV-2 RNA (FLORES) (NEGATIVE) Result Diagrams: 07/25/21 04:48 07/25/21 04:48 Sepsis Event Note - Focused Exam Vital Signs: Vital Signs Temp Pulse Resp BP Pulse Ox 07/25/21 04:24 36.8 C 96 18 160/105 H 100 *Q Meaningful Use (ADM) - VTE Risk Assess *Q Each Risk Factor Represents 1 Point: Minor Surgery Planned Total Score 1 Point Risk Factors: 1 - Problem List (1) Appendicitis SNOMED Code(s): 07010552 ICD Code: K37 - UNSPECIFIED APPENDICITIS Status: Acute Current Visit: Yes Qualifiers: Appendicitis type: acute appendicitis Acute appendicitis type: with localized peritonitis Appendicitis gangrene presence: without gangrene Appendicitis perforation presence: without perforation Appendicitis abscess presence: without abscess Qualified Code(s): K35.30 - Acute appendicitis with localized peritonitis, without perforation or gangrene Problem List Initiated/Reviewed/Updated: Yes Orders Last 24hrs: Active Orders 24 hr Category Date Time Status Patient Status [ADT] Routine ADT 07/25/21 13:02 Active Communication Order [RC] ASDIRECTED Care 07/25/21 04:44 Active Communication Order [RC] ASDIRECTED Care 07/25/21 14:46 Active Cooling Warming Measures [RC] ASDIRECTED Care 07/25/21 14:46 Active Oxygen Therapy [RC] ASDIRECTED Care 07/25/21 14:46 Active Peripheral IV Care [RC] . DIRECTED Care 07/25/21 04:44 Active Pulse Oximetry [RC] ASDIRECTED Care 07/25/21 14:46 Active Vital Signs [RC] Q15M Care 07/25/21 14:46 Active Abdomen Ltd [US] Stat Exams 07/25/21 06:56 Taken Abdomen Pelvis w Cont [CT] Stat Exams 07/25/21 09:48 Taken HYDROmorphone [Dilaudid] Med 07/25/21 14:46 Active 0.5 mg IVPUSH Q10M PRN Ketorolac [Toradol] Med 07/25/21 05:00 Active 30 mg IVPUSH ONETIME Lactated Ringers [Ringers, Lactated] 1,000 ml Med 07/25/21 10:00 Active IV ASDIRECTED Sodium Chloride 0.9% [Saline Flush] Med 07/25/21 04:44 Active 10 ml FLUSH ASDIRECTED PRN Sodium Chloride 0.9% [Saline Flush] Med 07/25/21 10:58 Active 10 ml FLUSH ONETIME PRN fentaNYL [Sublimaze] Med 07/25/21 14:46 Active 100 mcg IVPUSH Q5M PRN Peripheral IV Insertion Adult [OM.PC] Stat Oth 07/25/21 04:44 Ordered Schedule Procedure [COMM] Stat Oth 07/25/21 13:04 Ordered Medication Orders Fentanyl (Fentanyl 100 Mcg/2 Ml Sdv) 100 mcg IVPUSH Q5M PRN PRN Reason: Pain Hydromorphone HCl (Hydromorphone 0.5 Mg/0.5 Ml Syringe) 0.5 mg IVPUSH Q10M PRN PRN Reason: Pain (severe 7-10) Lactated Ringer's (Ringers, Lactated) 1,000 mls @ 100 mls/hr IV ASDIRECTED [facility] Last Admin: 07/25/21 10:43 Dose: 100 mls/hr Documented by: MALCOM Ketorolac Tromethamine (Ketorolac 30 Mg/Ml Sdv) 30 mg IVPUSH ONETIME [facility] Last Admin: 07/25/21 05:02 Dose: 30 mg Documented by: MITZY Sodium Chloride (Sodium Chloride 0.9% 10 Ml Syringe) 10 ml FLUSH ASDIRECTED PRN PRN Reason: Keep Vein Open Last Admin: 07/25/21 11:20 Dose: 10 ml Documented by: Admin: 07/25/21 05:02 Dose: 10 ml Documented by: MITZY Sodium Chloride (Sodium Chloride 0.9% 10 Ml Syringe) 10 ml FLUSH ONETIME PRN PRN Reason: Keep Vein Open Last Admin: 07/25/21 12:39 Dose: 10 ml Documented by: MALCOM Assessment/Plan Comment:: 40 y/o lady with acute appendicitis - plan for laparoscopic appendectomy, possible open. Discussed risks of bleeding, intraabdominal injury, and conversion to open. Her written consent was obtained. - IV ceftriaxone and metronidazole - NPO for procedure - preoperative covid test Will assess need for hospital stay based on intraoperative findings. Lashaun Aly MD General surgery
--- NOTE | 2021-07-25 15:20 | PCM.OPNOTE ---
- General Post-Op/Procedure Note Date of Surgery/Procedure: 07/25/21 Operative Procedure(s): Laparoscopic appendectomy Findings: acute appendicitis, not ruptured Pre Op Diagnosis: acute appendicitis Post-Op Diagnosis: same Anesthesia Technique: General ET Tube, Local Primary Surgeon: Lashaun Aly Anesthesia Provider: Robert Chew Pathology: appendix Fluid Replacement, Intraop: 1,200 Output, Urine Amount: 0 EBL in mLs: 5 Complications: none apparent Condition: Good
--- NOTE | 2021-07-25 16:10 | PCM.POSTAN ---
POST ANESTHESIA ASSESSMENT - MENTAL STATUS Mental Status: Somnolent - VITAL SIGNS Vital Signs: Last Vital Signs in PACU at 15:16 130/69. 100HR, 7 RR, 99% on 4L, 98.4F - RESPIRATORY Respiratory Status: Respiratory Rate WNL, Airway Patent, O2 Saturation Stable, Supplemental Oxygen - CARDIOVASCULAR CV Status: Pulse Rate WNL, Blood Pressure Stable - GASTROINTESTINAL GI Status: No Symptoms - PAIN Pain Score: 0 - POST OP HYDRATION Hydration Status: Adequate & Stable
[2021-07-25] MEDS ORDERED: Prochlorperazine 10 MG/2 ML SDV IVPUSH PRN (16:34)
--- NOTE | 2021-07-25 17:00 | PCM48HPAN ---
Post Anesthesia Note - EVALUATION WITHIN 48HRS OF ANESTHETIC Vital Signs in Normal Range: Yes Patient Participated in Evaluation: Yes Respiratory Function Stable: Yes Airway Patent: Yes Cardiovascular Function Stable: Yes Hydration Status Stable: Yes Pain Control Satisfactory: Yes Nausea and Vomiting Control Satisfactory: Yes (under control after additional dose of Zofrean and Compazine) Mental Status Recovered: Yes Vital Signs: Last Vital Signs Temp 98.4 F 07/25/21 15:16 Pulse 96 07/25/21 04:24 Resp 12 07/25/21 15:45 BP 91/57 L 07/25/21 15:45 Pulse Ox 97 07/25/21 15:45 - COMMENTS/OBSERVATIONS Free Text/Narrative:: Preparing for discharge home
[2021-07-25 18:50] VITALS: BP 113/65; PULSE 76
--- NOTE | 2021-07-26 08:37 | US ---
Limited abdominal ultrasound: Multiple real-time images were obtained of the upper right abdomen. Additional images were obtained of the right lower quadrant. Comparison: No previous abdominal imaging is available. Findings: Liver is echogenic most likely representing fatty infiltration. Gallbladder contains several intraluminal abnormalities possibly due to gallbladder polyps or less likely adherent sludge. Largest abnormality measures 3.7 mm. No gallbladder wall thickening is seen. Common bile duct measures 7.6 mm which is at the upper limits of normal. Right kidney shows no hydronephrosis or mass and has a length of 10.8 cm. Proximal aorta shows no aneurysm. Pancreas is incompletely seen. Visualized portions of the pancreas are normal. Inferior vena cava is patent. Main portal vein is hepatopedal. Images of the right lower quadrant show no visualization of the appendix. Impression: 1. Nonvisualized appendix. 2. Echogenic liver most likely representing fatty infiltration. 3. Several intraluminal abnormalities within the gallbladder most likely representing polyps. These findings could also, although less likely, be due to adherent sludge. 4. Common bile duct is slightly prominent at 7.6 mm. Diagnostic code #3 I agree with preliminary report from [facility], finalized on 07/25/21, 11:[address], code 1
--- NOTE | 2021-07-26 08:51 | CT ---
CT abdomen and pelvis Technique: Multiple axial sections through the abdomen were obtained from slightly below the top of the liver inferiorly through the pubic symphysis. Intravenous and oral contrast were utilized. Delayed images were also obtained through the same levels. Reconstructed coronal and sagittal images were obtained. Comparison: Prior right upper quadrant abdominal ultrasound performed earlier on the same day (7:36 AM). Findings: Appendix is enlarged. Inflammatory change is seen around the appendix. Findings are compatible with appendicitis. Visualized lung bases show nothing acute. Liver shows diffuse fatty infiltration. No focal abnormality is appreciated. Upper portions of the liver were not included on this study. Gallbladder contains no calcified gallstones. Spleen size is normal. Kidneys show symmetric contrast enhancement. Left kidney shows a cyst measuring 1.3 cm. Adrenal glands show no nodule. Pancreas shows no focal abnormality. Abdominal aorta shows no aneurysm. No retroperitoneal adenopathy or mesenteric abnormalities are seen. No pelvic mass or adenopathy is seen. No free fluid is seen. Delayed images show contrast within the ureters and within the bladder. Bone window settings were reviewed which show no acute osseous finding. Impression: 1. Findings compatible with appendicitis. No findings of abscess are seen. 2. Fatty infiltration within the liver. 3. Cyst within the left kidney. Diagnostic code #5 I agree with preliminary report from 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
== END 2021-07-25 20:50 | disposition home or self-care (01) ==
LOC: JD.ED 04:12 → JD.SDS 13:24 → JD.MS 18:34 → JD.SDS 20:50
PROVIDERS: ATTEND Surgery
DX: K35.30 Acute appendicitis with localized peritonitis, without perforation or gangrene (principal); Z88.1 Allergy status to other antibiotic agents; Z01.812 Encounter for preprocedural laboratory examination; Z20.822 Contact with and (suspected) exposure to COVID-19
CPT/HCPCS: 0240U; 36415; 44970; 74177; 76705; 80053; 81001; 85025; 86140; J0330; J0696; J0780; J1100; J1170; J1885; J2250; J2405; J2704; J3010; J3490; J7030; J7120; Q9963; Q9967; 00840; 88304; 99140; 99285